=== PATIENT | female | born 1945 | race Caucasian/White ===

== ENCOUNTER 2019-06-30 17:13 | Emergency (ER) | payer MEDICARE, MEDICAID ==
[~2019-06-30] VITALS: Ht 149.9 cm; Wt 67.3 kg
[~2019-06-30 17:13] MED LIST: TIMO10DR28 OP
[2019-06-30] MEDS ORDERED: PROP1DRO4 OS (17:24)
[2019-06-30] MEDS ORDERED: PRED5DRO25 OD (17:24)
[2019-06-30] MEDS ORDERED: CYCL05OE OD (17:24)
[2019-06-30] MEDS ORDERED: PREG50 PO (17:24)
[2019-06-30] MEDS ORDERED: INSLAN SQ (17:24)
[2019-06-30] MEDS ORDERED: LEVO75 PO (17:24)
[2019-06-30] MEDS ORDERED: SEVE800T17 PO (17:24)
[2019-06-30] MEDS ORDERED: NIFE-64 PO (17:24)
[2019-06-30] MEDS ORDERED: CARV12 PO (17:24)
[2019-06-30] MEDS ORDERED: RANI150T7 PO (17:24)
[2019-06-30] MEDS ORDERED: CHOL100018 PO (17:24)
[2019-06-30] MEDS ORDERED: LISI-662 PO (17:24)
[2019-06-30] MEDS ORDERED: ASPI-728 PO (17:24)
[2019-06-30] MEDS ORDERED: SIMV-260 PO (17:24)
[2019-06-30] MEDS ORDERED: FURO40 PO (17:24)
[2019-06-30] MEDS ORDERED: GLIP2.5ER PO (17:24)
[2019-06-30] MEDS ORDERED: ACETAMINOPHEN 500 MG TABLET PO ONE (18:00)
[2019-06-30 20:08] VITALS: BP 142/79
[2019-07-01 07:08] LABS: GLUCOSE,POINT OF CARE 138 MG/DL (70-110)
== END 2019-06-30 20:36 | disposition home or self-care (01) ==
LOC: EMS 17:36
DX: S42.292A Other displaced fracture of upper end of left humerus, initial encounter for closed fracture (principal); S52.512A Displaced fracture of left radial styloid process, initial encounter for closed fracture; S52.612A Displaced fracture of left ulna styloid process, initial encounter for closed fracture; I12.0 Hypertensive chronic kidney disease with stage 5 chronic kidney disease or end stage renal disease; E11.22 Type 2 diabetes mellitus with diabetic chronic kidney disease; N18.6 End stage renal disease; Z99.2 Dependence on renal dialysis; Z79.4 Long term (current) use of insulin; Z79.82 Long term (current) use of aspirin; Z79.899 Other long term (current) drug therapy; W19.XXXA Unspecified fall, initial encounter; Y93.89 Activity, other specified; Y92.89 Other specified places as the place of occurrence of the external cause; Y99.8 Other external cause status
CPT/HCPCS: 29105